=== PATIENT | male | born 1970 | race African-American/Black ===

== ENCOUNTER 2020-09-09 01:46 | Emergency (ER) | payer OTHER ==
[~2020-09-09] VITALS: Ht 185.4 cm; Wt 90.9 kg
[2020-09-09] MEDS ORDERED: ACETAMINOPHEN 500 MG TABLET PO ONE (02:15)
[2020-09-09 02:24] LABS: HEMATOCRIT 40.9 % (41-53); HEMOGLOBIN 13.9 g/dL (13.5-17.5); MEAN CORPUSCULAR HEMOGLOBIN 31.6 pg (26.0-34.0); MEAN CORPUSCULAR HGB CONC 33.9 G/dL (31.0-37.0); MEAN CORPUSCULAR VOLUME 93 fL (80-100); PLATELET COUNT (AUTO) 250 K/uL (150-450); RED BLOOD CELL COUNT(AUTO) 4.39 MIL/uL (4.50-5.90); RED CELL DISTRIBUTION WIDTH 12.8 % (11.5-14.5)
[2020-09-09 02:36] LABS: ANION GAP 6 mmol/L (8-16); CARBON DIOXIDE 28 mmol/L (22-29); CHLORIDE 93 mmol/L (98-107); CREATININE 1.22 mg/dL (0.60-1.30); GLOMERULAR FILTR. RATE CALC > 60 mL/min (>60); GLUCOSE,RANDOM 107 mg/dL (70-110); SODIUM SERUM 127 mmol/L (136-145); UREA NITROGEN, BLOOD 21 mg/dL (7-18)
[2020-09-09 02:41] LABS: ALANINE AMINOTRANSFERASE 42 U/L (12-78); ALBUMIN 3.1 g/dL (3.4-5.0); ALKALINE PHOSPHATASE 68 U/L (46-116); ASPARTATE AMINOTRANSFERASE 45 U/L (15-37); BILIRUBIN,TOTAL 0.6 mg/dL (0.1-1.0); TOTAL PROTEIN, SERUM 7.7 g/dL (6.4-8.2)
[2020-09-09] MEDS ORDERED: SODIUM CHLORIDE 0.9% 1,000 ML IV ONE (02:45)
[2020-09-09 03:55] LABS: COVID AG,FIA SOURCE NASOPHARYNGEAL
[2020-09-09 04:04] LABS: BAND NEUTROPHILS % (MANUAL) 1 % (0-5); LYMPHOCYTES % (MANUAL) 14 % (22-44); MONOCYTES % (MANUAL) 6 % (2-9); REACTIVE LYMPHOCYTES 9 % (0-0); SEGMENTED NEUTROPHILS % 70 % (40-70)
[2020-09-09 04:40] LABS: INFLUENZA TYPE A NEGATIVE FOR TYPE A (NEGATIVE); INFLUENZA TYPE B NEGATIVE FOR TYPE B (NEGATIVE)
[2020-09-09 04:48] VITALS: BP 123/79
== END 2020-09-09 05:34 | disposition home or self-care (01) ==
LOC: EMS 01:47
DX: U07.1 COVID-19 (principal); J32.9 Chronic sinusitis, unspecified
CPT/HCPCS: 36415; 70450; 70486; 71045; 80053; 83880; 84484; 85025; 87040; 87426; 87804; 93005; 99285; U0003

== ENCOUNTER 2020-12-24 01:12 | Inpatient (IN) | payer MEDICAID, OTHER ==
[~2020-12-24] VITALS: Ht 182.9 cm; Wt 79.4 kg
[2020-12-24] MEDS ORDERED: DiphenhydrAMINE HCL 50 MG/ML VIAL IM ONE ×2 (02:15→06:00)
[2020-12-24] MEDS ORDERED: HALOPERIDOL LACTATE 5 MG/ML VIAL IM ONE ×2 (02:15→06:00)
[2020-12-24 02:34] LABS: BASOPHILS % (AUTO) 0.9 % (0.0-2.0); EOSINOPHILS % (AUTO) 0.9 % (1.0-6.0); HEMATOCRIT 29.7 % (41-53); HEMOGLOBIN 10.1 g/dL (13.5-17.5); LYMPHOCYTES # (AUTO) 1.4 K/uL (1.0-4.8); LYMPHOCYTES % (AUTO) 18.6 % (22.0-44.0); MEAN CORPUSCULAR HEMOGLOBIN 32.7 pg (26.0-34.0); MEAN CORPUSCULAR VOLUME 96 fL (80-100); MONOCYTES # (AUTO) 0.8 K/uL (0.1-1.0); MONOCYTES % (AUTO) 10.4 % (2.0-9.0); NEUTROPHILS # (AUTO) 5.3 K/uL (1.8-7.7); NEUTROPHILS % (AUTO) 69.2 % (40.0-70.0); PLATELET COUNT (AUTO) 444 K/uL (150-450); RED BLOOD CELL COUNT(AUTO) 3.09 MIL/uL (4.50-5.90); RED CELL DISTRIBUTION WIDTH 12.5 % (11.5-14.5)
[2020-12-24 02:43] LABS: ANION GAP 7 mmol/L (8-16); CALCIUM, TOTAL 8.7 mg/dL (8.8-10.5); CARBON DIOXIDE 30 mmol/L (22-29); CHLORIDE 106 mmol/L (98-107); CREATININE 1.27 mg/dL (0.60-1.30); GLOMERULAR FILTR. RATE CALC > 60 mL/min (>60); GLUCOSE,RANDOM 73 mg/dL (70-110); POTASSIUM 4.4 mmol/L (3.5-5.1); SODIUM SERUM 143 mmol/L (136-145); UREA NITROGEN, BLOOD 17 mg/dL (7-18)
[2020-12-24 03:01] LABS: ALANINE AMINOTRANSFERASE 53 U/L (12-78); ALBUMIN 3.3 g/dL (3.4-5.0); ALKALINE PHOSPHATASE 80 U/L (46-116); ASPARTATE AMINOTRANSFERASE 48 U/L (15-37); BILIRUBIN,TOTAL 0.5 mg/dL (0.1-1.0); TOTAL PROTEIN, SERUM 6.7 g/dL (6.4-8.2)
[2020-12-24 03:02] LABS: CREATINE KINASE, TOTAL ONLY 1449 U/L (39-308)
[2020-12-24 03:20] LABS: COVID AG,FIA SOURCE NASOPHARYNGEAL
[2020-12-24] MEDS ORDERED: LORazepam 2 MG TABLET PO PRN (04:30)
[2020-12-24] MEDS ORDERED: HALOPERIDOL 5 MG TABLET PO PRN (04:30)
[2020-12-24] MEDS ORDERED: ZOLPIDEM TARTRATE 10 MG TABLET PO PRN (04:30)
[2020-12-24] MEDS ORDERED: LORazepam 2 MG/ML VIAL IM ONE (06:00)
[2020-12-24 07:40] LABS: APPEARANCE,URINE CLEAR (CLEAR); BILIRUBIN,URINE NEGATIVE (NEGATIVE); GLUCOSE, URINE (UA) NEGATIVE (NEGATIVE); KETONES,URINE NEGATIVE (NEGATIVE); LEUKOCYTE ESTERASE ,URINE NEGATIVE (NEGATIVE); NITRATE,URINE NEGATIVE (NEGATIVE); OCCULT BLOOD,URINE NEGATIVE (NEGATIVE); PH,URINE 6.5 (5.0-8.0); PROTEIN,URINE NEGATIVE (NEGATIVE)
[2020-12-24 07:46] LABS: AMPHET/METH SCREEN,URINE NEGATIVE (NEGATIVE); BARBITURATE SCREEN, URINE NEGATIVE (NEGATIVE); BENZODIAZEPINES SCREEN,URINE POSITIVE (NEGATIVE); CANNABINOID SCREEN,URINE POSITIVE (NEGATIVE); COCAINE SCREEN,URINE NEGATIVE (NEGATIVE); METHADONE SCREEN, URINE NEGATIVE (NEGATIVE); OPIATE SCREEN,URINE NEGATIVE (NEGATIVE); PHENCYCLIDINE SCREEN,URINE NEGATIVE (NEGATIVE)
[2020-12-24 16:14] VITALS: BP 130/80
[2020-12-24] MEDS ORDERED: INFLUENZA VIRUS VACCINE QVS 2021-22 (6MO+)/PF 60 MCG/0.5 ML SYRINGE IM. ONE (19:00)
[2020-12-25 00:57] VITALS: BP 125/70
[2020-12-25 08:37] VITALS: BP 155/98
[2020-12-25 08:40] LABS: HEMOGLOBIN A1C 5.1 % (3.8-5.6)
[2020-12-25 08:57] LABS: CHOL/HDL RATIO 2.8 (4.2-7.3); THYROID STIMULATING HORMONE 1.32 uIU/mL (0.36-3.74)
[2020-12-25] MEDS ORDERED: DOCUSATE SODIUM 100 MG CAPSULE PO PRN (09:00)
[2020-12-25] MEDS ORDERED: MAGNESIUM HYDROXIDE SUSPENSION 30 ML UDCUP PO PRN (09:00)
[2020-12-25] MEDS ORDERED: GuaiFENesin/D-METHORPHAN [SUGAR-FREE] 200-20MG/10 ML SYRUP UDCUP PO PRN (09:00)
[2020-12-25] MEDS ORDERED: PETROLATUM,WHITE 28 GM JELLY TP PRN (09:00)
[2020-12-25] MEDS ORDERED: CloNIDine HCL 0.1 MG TABLET PO PRN (09:00)
[2020-12-25] MEDS ORDERED: MAG HYDROX/AL HYDROX/SIMETH ES 30 ML SUSPENSION UDCUP PO PRN (09:00)
[2020-12-25] MEDS ORDERED: ONDANSETRON HCL 4 MG TABLET PO PRN (09:00)
[2020-12-25] MEDS ORDERED: NICOTINE 14 MG/24 HOUR PATCH TD PRN (09:00)
[2020-12-25] MEDS ORDERED: ALBUTEROL SULFATE HFA 90 MCG/PUFF 8 GM INHALER IH PRN (09:00)
[2020-12-25] MEDS ORDERED: LOPERAMIDE HCL 2 MG CAPSULE PO PRN (09:00)
[2020-12-25] MEDS: ACETAMINOPHEN 325 MG TABLET PO PRN (10:03)
[2020-12-25] MEDS: IBUPROFEN 400 MG TABLET PO PRN (11:04)
[2020-12-25] MEDS: OLANZapine 5 MG TABLET PO SCH ×2 (12:10→16:49)
[2020-12-25 16:10] VITALS: BP 137/89
[2020-12-25] MEDS: BACITRACIN 28 GM OINTMENT TP SCH (16:50)
[2020-12-26 06:00] VITALS: BP 117/79
[2020-12-26] MEDS: OLANZapine 5 MG TABLET PO SCH ×3 (08:40→16:56)
[2020-12-26] MEDS: BACITRACIN 28 GM OINTMENT TP SCH ×2 (08:40→16:56)
[2020-12-26 09:36] VITALS: BP 137/91
[2020-12-26 16:34] VITALS: BP 138/80
[2020-12-27 04:46] VITALS: BP 108/62
[2020-12-27 08:30] VITALS: BP 123/80
[2020-12-27] MEDS: OLANZapine 5 MG TABLET PO SCH ×2 (08:56→17:00)
[2020-12-27] MEDS: MULTIVITAMINS WITH MINERALS, THERAPEUTIC TABLET PO SCH (08:56)
[2020-12-27] MEDS: BACITRACIN 28 GM OINTMENT TP SCH ×2 (09:15→17:00)
[2020-12-27 16:21] VITALS: BP 118/80
[2020-12-27] MEDS: ACETAMINOPHEN 325 MG TABLET PO PRN (16:41)
[2020-12-28 01:36] VITALS: BP 140/87
[2020-12-28] MEDS: IBUPROFEN 400 MG TABLET PO PRN (03:38)
[2020-12-28 05:35] VITALS: BP 140/87
[2020-12-28 08:46] VITALS: BP 129/82
[2020-12-28] MEDS: OLANZapine 5 MG TABLET PO SCH (09:21)
[2020-12-28] MEDS: BACITRACIN 28 GM OINTMENT TP SCH (09:21)
[2020-12-28] MEDS: MULTIVITAMINS WITH MINERALS, THERAPEUTIC TABLET PO SCH (09:22)
[2020-12-28] MEDS ORDERED: OLAN5TAB52 PO (12:42)
== END 2020-12-28 13:45 | disposition left against medical advice (07) | DRG 750 ==
LOC: EMS 01:15 → B3A 12:11
PROVIDERS: ADMIT Psychiatry & Neurology Child & Adolescent Psychiatry; ATTEND Psychiatry & Neurology Child & Adolescent Psychiatry
DX: F20.0 Paranoid schizophrenia (principal); M62.82 Rhabdomyolysis; F10.10 Alcohol abuse, uncomplicated; F13.10 Sedative, hypnotic or anxiolytic abuse, uncomplicated; F17.210 Nicotine dependence, cigarettes, uncomplicated; D64.9 Anemia, unspecified; F12.10 Cannabis abuse, uncomplicated; Z20.822 Contact with and (suspected) exposure to COVID-19; Y90.0 Blood alcohol level of less than 20 mg/100 ml; Z59.00 Homelessness unspecified; Z71.41 Alcohol abuse counseling and surveillance of alcoholic; Z71.51 Drug abuse counseling and surveillance of drug abuser
CPT/HCPCS: 80053; 80061; 81003; 82550; 83036; 84439; 84443; 85025; 99291; G0480; J1200; J1630

== ENCOUNTER 2024-03-01 10:57 | Inpatient (IN) | payer MEDICAID, OTHER ==
[~2024-03-01] VITALS: Ht 177.8 cm; Wt 80.0 kg
[~2024-03-01 10:57] MED LIST: OLAN5TAB52 PO
[2024-03-01] MEDS ORDERED: CARV6.2534 PO (11:41)
[2024-03-01] MEDS ORDERED: ATOR40TA71 PO (11:41)
[2024-03-01] MEDS ORDERED: THIA100T92 PO (11:41)
[2024-03-01] MEDS ORDERED: LORazepam 2 MG/ML VIAL IM ONE (11:45)
[2024-03-01] MEDS ORDERED: HALOPERIDOL LACTATE 5 MG/ML VIAL IM ONE (11:45)
[2024-03-01] MEDS ORDERED: DiphenhydrAMINE HCL 50 MG/ML VIAL IM ONE (11:45)
[2024-03-01] MEDS: DiphenhydrAMINE HCL 50 MG/ML VIAL IM ONE ×2 (11:47→18:51)
[2024-03-01] MEDS: HALOPERIDOL LACTATE 5 MG/ML VIAL IM ONE ×2 (11:47→18:51)
[2024-03-01] MEDS: LORazepam 2 MG/ML VIAL IM ONE ×2 (11:47→18:51)
[2024-03-01] MEDS ORDERED: HALOPERIDOL 5 MG TABLET PO PRN (14:00)
[2024-03-01] MEDS ORDERED: LORazepam 2 MG TABLET PO PRN (14:00)
[2024-03-01 14:07] LABS: BASOPHILS % (AUTO) 0.9 % (0.0-2.0); EOSINOPHILS % (AUTO) 1.1 % (1.0-6.0); HEMATOCRIT 30.3 % (41-53); HEMOGLOBIN 10.3 g/dL (13.5-17.5); MEAN CORPUSCULAR HEMOGLOBIN 32.6 pg (26.0-34.0); MEAN CORPUSCULAR HGB CONC 33.9 G/dL (31.0-37.0); MEAN CORPUSCULAR VOLUME 96 fL (80-100); MONOCYTES # (AUTO) 0.6 K/uL (0.1-1.0); MONOCYTES % (AUTO) 11.3 % (2.0-9.0); NEUTROPHILS # (AUTO) 3.7 K/uL (1.8-7.7); NEUTROPHILS % (AUTO) 67.7 % (40.0-70.0); PLATELET COUNT (AUTO) 368 K/uL (150-450); RED BLOOD CELL COUNT(AUTO) 3.14 MIL/uL (4.50-5.90); RED CELL DISTRIBUTION WIDTH 13.4 % (11.5-14.5); WHITE BLOOD COUNT (AUTO) 5.5 K/uL (4.5-11.0)
[2024-03-01 14:16] LABS: ANION GAP 8 mmol/L (8-16); CARBON DIOXIDE 27 mmol/L (22-29); CHLORIDE 101 mmol/L (98-107); CREATININE 1.04 mg/dL (0.60-1.30); GLUCOSE,RANDOM 89 mg/dL (70-110); SODIUM SERUM 136 mmol/L (136-145); UREA NITROGEN, BLOOD 14 mg/dL (7-18)
[2024-03-01 14:17] LABS: CALCIUM, TOTAL 8.4 mg/dL (8.8-10.5); GLOMERULAR FILTR. RATE CALC > 60 mL/min (>60)
[2024-03-01 14:28] LABS: ALCOHOL, BLOOD (SERUM) < 3 mg/dL (0-10)
[2024-03-01 15:42] LABS: COVID AG,FIA SOURCE NASAL SWAB
[2024-03-01 16:19] LABS: SARS-COV2 (COVID) ANTIGEN,FIA Negative (Negative)
[2024-03-01] MEDS: POTASSIUM CHLORIDE 20 MEQ ER TABLET PO ONE (18:52)
[2024-03-01] MEDS: POTASSIUM CHLORIDE 10% 40 MEQ/30 ML LIQUID UDCUP PO ONE ×2 (19:43→20:51)
[2024-03-01] MEDS: POTASSIUM CHL 10 MEQ/WATER 50 ML IV SCH (21:12)
[2024-03-01] MEDS: SULFACETAMIDE SODIUM 10% 15 ML OPHTHALMIC SOLUTION OD ONE (21:12)
[2024-03-02 01:54] VITALS: RESP 18; TEMP 98.1
[2024-03-02] MEDS ORDERED: INFLUENZA VIRUS VACCINE TVS (6MO+) 2024-25/PF 45 MCG/0.5 ML SYRINGE IM. ONE (04:45)
[2024-03-02] MEDS: ATORVASTATIN CALCIUM 40 MG TABLET PO SCH (09:00)
[2024-03-02] MEDS: CARVEDILOL 6.25 MG TABLET PO SCH (09:00)
[2024-03-02] MEDS: THIAMINE 100 MG TABLET PO SCH (09:00)
[2024-03-02 10:04] VITALS: RESP 18
[2024-03-02] MEDS ORDERED: ETHANOL TP SCH (13:00)
[2024-03-02] MEDS ORDERED: ERYTHROMYCIN BASE TP SCH (13:00)
[2024-03-02] MEDS ORDERED: CEPHALEXIN MONOHYDRATE 500 MG CAPSULE PO SCH (13:00)
[2024-03-02] MEDS: CIPROFLOXACIN HCL 0.3% 3.5 GM OPHTHALMIC OINTMENT OD SCH (15:33)
[2024-03-02] MEDS: CIPROFLOXACIN HCL 500 MG TABLET PO SCH (17:00)
[2024-03-02 20:28] VITALS: RESP 18
[2024-03-02] MEDS: OLANZapine 10 MG RAPDIS TABLET PO SCH (20:38)
[2024-03-02] MEDS: ZOLPIDEM TARTRATE 10 MG TABLET PO PRN (21:28)
[2024-03-03 08:30] VITALS: RESP 18
[2024-03-03 22:30] VITALS: RESP 20; TEMP 97.9
[2024-03-04 15:20] VITALS: BP 131/80; PULSE 70; RESP 17; TEMP 97.9; O2SAT 96
[2024-03-04 21:09] VITALS: BP 130/86; PULSE 97; RESP 18; TEMP 98.1
[2024-03-05 12:06] VITALS: BP 124/84; PULSE 95; RESP 18; TEMP 98
[2024-03-05 21:03] VITALS: RESP 20; TEMP 97.5
[2024-03-06 09:25] VITALS: BP 111/69; PULSE 100; RESP 16; TEMP 98.4; O2SAT 96
[2024-03-06 16:45] VITALS: BP 130/72; PULSE 86; RESP 18
[2024-03-06 21:04] VITALS: BP 114/73; PULSE 80; RESP 18; TEMP 97.8
[2024-03-07 11:24] VITALS: BP 129/69; PULSE 74; RESP 17; TEMP 97.2; O2SAT 98
[2024-03-07 21:18] VITALS: RESP 18
[2024-03-08 10:50] VITALS: BP 133/79; PULSE 100; RESP 17; TEMP 98.8; O2SAT 98
[2024-03-08 22:06] VITALS: BP 113/79; PULSE 101; RESP 18; TEMP 98.8; O2SAT 95
[2024-03-09] MEDS ORDERED: OLAN10TA26 PO (09:56)
[2024-03-09 10:13] VITALS: BP 127/78; PULSE 97; RESP 16; TEMP 97.9; O2SAT 96
== END 2024-03-09 13:00 | disposition home or self-care (01) | DRG 750 ==
LOC: EMS 10:57 → 3EC 03-02 01:15
PROVIDERS: ADMIT Psychiatry & Neurology Child & Adolescent Psychiatry; ATTEND Psychiatry & Neurology Child & Adolescent Psychiatry
PROC: GZ56ZZZ Individual Psychotherapy, Supportive (ICD-10-PCS; principal; 2024-03-02)
DX: F20.9 Schizophrenia, unspecified (principal); E87.6 Hypokalemia; F17.210 Nicotine dependence, cigarettes, uncomplicated; I10 Essential (primary) hypertension; Z20.822 Contact with and (suspected) exposure to COVID-19; Z88.0 Allergy status to penicillin; Z79.899 Other long term (current) drug therapy
CPT/HCPCS: 80048; 84132; 85025; 99285; G0480; J1200; J1630; J2060; J3480

== ENCOUNTER 2024-09-20 13:06 | Inpatient (IN) | payer MEDICAID, OTHER ==
[~2024-09-20] VITALS: Ht 190.5 cm; Wt 95.5 kg
[~2024-09-20 13:06] MED LIST changes: +OLAN10TA26 PO; -OLAN5TAB52 PO
[2024-09-20 14:08] LABS: PLATELET COUNT (AUTO) 255 K/uL (150-450); RED BLOOD CELL COUNT(AUTO) 4.11 MIL/uL (4.50-5.90); RED CELL DISTRIBUTION WIDTH 13.7 % (11.5-14.5); WHITE BLOOD COUNT (AUTO) 3.1 K/uL (4.5-11.0)
[2024-09-20 14:11] LABS: CALCIUM, TOTAL 8.9 mg/dL (8.8-10.5); CREATININE 1.20 mg/dL (0.60-1.30); GLOMERULAR FILTR. RATE CALC > 60 mL/min (>60); GLUCOSE,RANDOM 116 mg/dL (70-110); SODIUM SERUM 139 mmol/L (136-145); UREA NITROGEN, BLOOD 24 mg/dL (7-18)
[2024-09-20] MEDS ORDERED: ACETAMINOPHEN 325 MG TABLET PO PRN (17:30)
[2024-09-20] MEDS ORDERED: ONDANSETRON HCL 4 MG/2 ML VIAL IVP PRN (17:30)
[2024-09-20 20:32] VITALS: BP 115/69; PULSE 82; RESP 16; TEMP 98.1; O2SAT 96
[2024-09-20] MEDS: DOCUSATE SODIUM 100 MG CAPSULE PO SCH (20:32)
[2024-09-20] MEDS ORDERED: ATOR40TA71 PO (22:01)
[2024-09-20] MEDS ORDERED: HYDR-5174 PO (22:01)
[2024-09-20] MEDS ORDERED: ERYT3.5O8 OD (22:01)
[2024-09-20] MEDS ORDERED: MOXI3DRO25 OD (22:01)
[2024-09-20] MEDS ORDERED: CARV6.2534 PO (22:01)
[2024-09-20] MEDS: HEPARIN SODIUM,PORCINE 5,000 UNITS/ML VIAL SQ SCH (23:05)
[2024-09-21 05:16] VITALS: BP 127/92; PULSE 71; RESP 18; TEMP 98.1; O2SAT 97
[2024-09-21 06:42] LABS: PLATELET COUNT (AUTO) 242 K/uL (150-450); RED BLOOD CELL COUNT(AUTO) 4.02 MIL/uL (4.50-5.90); RED CELL DISTRIBUTION WIDTH 13.5 % (11.5-14.5); WHITE BLOOD COUNT (AUTO) 3.2 K/uL (4.5-11.0)
[2024-09-21 06:50] LABS: CALCIUM, TOTAL 8.8 mg/dL (8.8-10.5); CREATININE 1.11 mg/dL (0.60-1.30); GLOMERULAR FILTR. RATE CALC > 60 mL/min (>60); GLUCOSE,RANDOM 80 mg/dL (70-110); SODIUM SERUM 137 mmol/L (136-145); UREA NITROGEN, BLOOD 19 mg/dL (7-18)
[2024-09-21 07:14] LABS: C-REACTIVE PROTEIN QUANT < 0.05 mg/dL (0.00-0.30)
[2024-09-21 07:36] LABS: ERYTHROCYTE SEDIMENTATION RATE 5 MM/HR (0-20)
[2024-09-21 08:13] VITALS: BP 132/85; PULSE 74; RESP 20; TEMP 97.3; O2SAT 99
[2024-09-21] MEDS ORDERED: SODIUM CHLORIDE 0.9% 500 ML IV ONE (08:53)
[2024-09-21] MEDS: VANCOMYCIN 1.75GM/WATER(PEG) 350 ML IV ONE (08:55)
[2024-09-21] MEDS: ATORVASTATIN CALCIUM 40 MG TABLET PO SCH (09:35)
[2024-09-21] MEDS: MOXIFLOXACIN HCL 0.5% 3 ML OPHTHALMIC SOLUTION OD SCH (09:35)
[2024-09-21] MEDS: OLANZapine 10 MG RAPDIS TABLET PO SCH (09:35)
[2024-09-21] MEDS: ERYTHROMYCIN 0.5% 3.5 GM TUBE OPHTHALMIC OINTMENT OD SCH (09:35)
[2024-09-21 15:51] VITALS: BP 108/81; PULSE 73; RESP 18; TEMP 98.4; O2SAT 95
[2024-09-21 19:49] VITALS: BP 113/93; PULSE 82; RESP 16; TEMP 97.3; O2SAT 97
[2024-09-21] MEDS: VANCOMYCIN 1.25 GM/WATER(PEG) 250 ML IV SCH (19:51)
[2024-09-22 04:00] VITALS: BP 99/78; PULSE 75; RESP 18; TEMP 97.9; O2SAT 97
[2024-09-22 06:27] LABS: PLATELET COUNT (AUTO) 203 K/uL (150-450); RED BLOOD CELL COUNT(AUTO) 4.14 MIL/uL (4.50-5.90); RED CELL DISTRIBUTION WIDTH 13.6 % (11.5-14.5); WHITE BLOOD COUNT (AUTO) 3.3 K/uL (4.5-11.0)
[2024-09-22 06:38] LABS: CALCIUM, TOTAL 8.7 mg/dL (8.8-10.5); CREATININE 1.03 mg/dL (0.60-1.30); GLOMERULAR FILTR. RATE CALC > 60 mL/min (>60); GLUCOSE,RANDOM 126 mg/dL (70-110); SODIUM SERUM 139 mmol/L (136-145); UREA NITROGEN, BLOOD 15 mg/dL (7-18)
[2024-09-22 08:08] VITALS: BP 116/88; PULSE 78; RESP 19; TEMP 98.2; O2SAT 98
[2024-09-22] MEDS: VANCOMYCIN 1.5 GM/WATER(PEG) 300 ML IV SCH (08:12)
[2024-09-22] MEDS ORDERED: LEVO750T68 PO (10:53)
[2024-09-22] MEDS ORDERED: ACET-2247 PO (10:55)
== END 2024-09-22 12:08 | DRG 556 ==
LOC: EMS 13:57 → EDH 17:09 → 6N 18:44
PROVIDERS: ADMIT Internal Medicine; ATTEND Internal Medicine
DX: M79.644 Pain in right finger(s) (principal); S05.61XA Penetrating wound without foreign body of right eyeball, initial encounter; D72.819 Decreased white blood cell count, unspecified; F20.9 Schizophrenia, unspecified; D63.8 Anemia in other chronic diseases classified elsewhere; E78.5 Hyperlipidemia, unspecified; E66.9 Obesity, unspecified; I10 Essential (primary) hypertension; X58.XXXA Exposure to other specified factors, initial encounter; Z88.0 Allergy status to penicillin; Z91.013 Allergy to seafood; Z91.09 Other allergy status, other than to drugs and biological substances; Z68.26 Body mass index [BMI] 26.0-26.9, adult; Z87.891 Personal history of nicotine dependence; Y93.89 Activity, other specified; Y92.89 Other specified places as the place of occurrence of the external cause; Y99.8 Other external cause status
CPT/HCPCS: 80048; 83735; 85025; 85651; 86140; 99285; J1644; J7040